=== PATIENT | female | born 1980 | race Caucasian/White ===

== ENCOUNTER 2018-01-04 08:14 | Emergency (ER) | payer BC ==
[~2018-01-04] VITALS: Ht 160 cm; Wt 59.0 kg
[2018-01-04] MEDS ORDERED: CLARITIN10 MG PO (08:52)
[2018-01-04] MEDS ORDERED: ESCI5 PO (08:53)
[2018-01-04] MEDS ORDERED: CYCL10 PO (09:32)
[2018-01-04] MEDS ORDERED: IBUP800 PO (09:32)
[2018-01-04] MEDS ORDERED: Norco 5-325 Ta1 EACH PO (09:32)
== END 2018-01-04 09:54 | disposition home or self-care (01) ==
LOC: ER 08:14
DX: S39.012A Strain of muscle, fascia and tendon of lower back, initial encounter (principal); Z79.899 Other long term (current) drug therapy; Z87.442 Personal history of urinary calculi; X50.0XXA Overexertion from strenuous movement or load, initial encounter